=== PATIENT | female | born 1995 | race African-American/Black ===

== ENCOUNTER 2017-08-13 17:43 | Emergency (ER) | payer MEDICAID, OTHER ==
[2017-08-13 18:24] LABS: URINE HCG POC HCG POSITIVE (Negative)
[2017-08-13 18:51] LABS: BILIRUBIN,URINE NEGATIVE (NEG); CLARITY,URINE CLEAR; COLOR,URINE YELLOW; GLUCOSE,URINE NEGATIVE (NEG); NITRITE,URINE NEGATIVE (NEG); PROTEIN,URINE NEGATIVE (NEG-TRACE); UROBILINOGEN,URINE 0.2 mg/dL (0.2 mg/dL)
[2017-08-13 19:12] LABS: BACTERIA,URINE 0 /HPF (0-FEW); RBC,URINE 0 /HPF (0-2); SQUAMOUS EPITHELIAL CELL,UR MOD /LPF; TRICHOMONAS,URINE PRESENT; WBC,URINE >40 /HPF (0-4)
[2017-08-13 19:14] LABS: NEG OBC UR NEG; POS OBC UR POS; U PREG PATIENT POSITIVE (NEG)
[2017-08-13] MEDS: ONDANSETRON ODT 4 MG TAB.RAPDIS. PO (19:59)
[2017-08-13] MEDS: cefTRIAXone IM 250 MG VIAL IM (20:46)
[2017-08-13] MEDS: AZITHROMYCIN 250 MG TABLET. PO (20:46)
== END 2017-08-13 21:26 | disposition home or self-care (01) ==
LOC: ER 21:26
DX: R10.30 Lower abdominal pain, unspecified (principal); R11.2 Nausea with vomiting, unspecified; Z33.1 Pregnant state, incidental
CPT/HCPCS: 36415; 76801; 81001; 81025; 84702; 87491; 87591; 96372; 99285-25; J0696; Q0144; Q0162